=== PATIENT | female | born 1960 | race African-American/Black ===

== ENCOUNTER 2024-05-17 15:08 | Emergency (ER) | payer MEDICAID ==
[~2024-05-17] VITALS: Ht 154.9 cm; Wt 54.0 kg
[2024-05-17 15:13] VITALS: O2SAT 97
[2024-05-17] MEDS ORDERED: CYCL5TAB MT (16:29)
[2024-05-17 17:31] VITALS: BP 109/56; PULSE 72; RESP 16; TEMP 98.7
[2024-05-17] MEDS: ACETAMINOPHEN 325MG TABLET PO ONE (17:31)
[2024-05-17] MEDS: KETOROLAC 30MG/ML VIAL IM ONE (17:31)
== END 2024-05-17 17:38 | disposition home or self-care (01) ==
LOC: ER 15:08
DX: G44.209 Tension-type headache, unspecified, not intractable (principal); M62.838 Other muscle spasm
CPT/HCPCS: 96372; 99283; J1885; Z7610